=== PATIENT | female | born 1950 | race Caucasian/White ===

== ENCOUNTER 2018-08-04 20:31 | Inpatient (IN) | payer OTHER ==
[~2018-08-04] VITALS: Ht 154.9 cm; Wt 48.5 kg
--- NOTE | 2018-08-04 20:40 | NUR ---
ED Nurse Note: Pt visiting from [place] c/o abdominal pain, nausea since 1999. No vomiting, diarrhea. 10 upper quad pain. AO4. NAD. VSS.
--- NOTE | 2018-08-04 20:44 | Emergency Room Report ---
History of Present Illness General Chief Complaint: Abdominal Pain Source: Patient Present Illness HPI Patient is a 67-year-old female who presented after increased epigastric abdominal pain. She reports having epigastric squeezing sensation. Patient patient reports having pain for approximately half an hour.had she report. she had prior history of type 2 diabetes. She had prior history of chronic pain. She denies any alcohol use. She reports havingprior history type 2 diabetes. taken Prilosec as well as Tylenol with codeine.taken Prilosec. Patient was noted to have some prior history of chronic back pain. Patient denies any prior history of gallstones. She reports having some prior abdominal surgeries for Allergies: Coded Allergies: AMOXICILLIN (Verified Allergy, Unknown, 08/04/18) CLAVULANIC ACID (Verified Allergy, Unknown, 08/04/18) OXYCODONE (Verified Allergy, Unknown, 08/04/18) Uncoded Allergies: TEMODEX (Allergy, Unknown, 08/04/18) Patient History Past Medical History: see triage record Last Menstrual Period: n/a Now: No : 3 Reviewed Nursing Documentation: PMH: Agreed; PSxH: Agreed Nursing Documentation-PMH Past Medical History: No Stated History Review of Systems All Other Systems: negative except mentioned in HPI Physical Exam Vital Signs Date Time Temp Pulse Resp B/P (MAP) Pulse Ox O2 Delivery O2 Flow Rate FiO2 08/04/18 20:35 97.9 82 20 182/92 97 Room Air Sp02 EP Interpretation: reviewed, normal General Appearance: normal inspection, well appearing, no apparent distress, alert, GCS 15 Head: atraumatic ENT: normal ENT inspection, hearing grossly normal, normal voice Neck: normal inspection, full range of motion, supple, no bony tend Respiratory: normal inspection, lungs clear, normal breath sounds, no respiratory distress, no retraction, no wheezing Cardiovascular #1: regular rate, rhythm, no edema Gastrointestinal: normal inspection, normal bowel sounds, non tender, soft, no guarding, no hernia Genitourinary: no CVA tenderness Musculoskeletal: normal inspection, back normal, normal range of motion Neurologic: normal inspection, alert, oriented x3, responsive, building repair maintenance supervisor III-XII nml as tested, speech normal Psychiatric: normal inspection, judgement/insight normal, mood/affect normal Skin: normal inspection, normal color, no rash Medical Decision Making Diagnostic Impression: Primary Impression: Pancreatitis Additional Impression: Dehydration ER Course Patient presented for epigastric abdominal pain. Differential diagnosis include was not limited to pancreatitis, inferior VA, cholecystitis, bowel obstruction among others. Because of complexity of patient's case laboratory testing and imaging studies were ordered. Laboratory studies showed normal white blood count. Patient was noted to have market elevation of her lipase consistent with pancreatitis. CT imaging read by radiology showed gallbladder dilation without evident radiopaque gallstones. Patient was given pain medications as well as IV fluids. Dr. Montrell Howard was contacted for inpatient management. Labs Test 08/04/18 21:00 White Blood Count 7.5 K/UL (4.8-10.8) Red Blood Count 4.35 M/UL (4.20-5.40) Hemoglobin 14.4 G/DL (12.0-16.0) Hematocrit 40.9 % (37.0-47.0) Mean Corpuscular Volume 94 FL (80-99) Mean Corpuscular Hemoglobin 33.2 PG (27.0-31.0) Mean Corpuscular Hemoglobin Concent 35.2 G/DL (32.0-36.0) Red Cell Distribution Width 10.3 % (11.6-14.8) Platelet Count 324 K/UL (150-450) Mean Platelet Volume 6.8 FL (6.5-10.1) Neutrophils (%) (Auto) 50.1 % (45.0-75.0) Lymphocytes (%) (Auto) 42.2 % (20.0-45.0) Monocytes (%) (Auto) 5.3 % (1.0-10.0) Eosinophils (%) (Auto) 1.5 % (0.0-3.0) Basophils (%) (Auto) 0.9 % (0.0-2.0) Prothrombin Time 10.6 SEC (9.30-11.50) Prothromb Time International Ratio 1.0 (0.9-1.1) Activated Partial Thromboplast Time 26 SEC (23-33) Urine Color Pale yellow Urine Appearance Clear Urine pH 6 (4.5-8.0) Urine Specific [place] 1.010 (1.005-1.035) Urine Protein Negative (NEGATIVE) Urine Glucose (UA) Negative (NEGATIVE) Urine Ketones Negative (NEGATIVE) Urine Blood 1+ (NEGATIVE) Urine Nitrite Negative (NEGATIVE) Urine Bilirubin Negative (NEGATIVE) Urine Urobilinogen Normal MG/DL (0.0-1.0) Urine Leukocyte Esterase 2+ (NEGATIVE) Urine RBC 0-2 /HPF (0 - 2) Urine WBC 15-20 /HPF (0 - 2) Urine Squamous Epithelial Cells Few /LPF (NONE/OCC) Urine Bacteria Few /HPF (NONE) Sodium Level 139 MMOL/L (136-145) Potassium Level 3.5 MMOL/L (3.5-5.1) Chloride Level 103 MMOL/L (98-107) Carbon Dioxide Level 24 MMOL/L (21-32) Anion Gap 12 mmol/L (5-15) Blood Urea Nitrogen 24 mg/dL (7-18) Creatinine 0.8 MG/DL (0.55-1.30) Estimat Glomerular Filtration Rate > 60 mL/min (>60) Glucose Level 99 MG/DL (74-106) Calcium Level 9.3 MG/DL (8.5-10.1) Total Bilirubin 0.4 MG/DL (0.2-1.0) Aspartate Amino Transf (AST/SGOT) 63 U/L (15-37) Alanine Aminotransferase (ALT/SGPT) 58 U/L (12-78) Alkaline Phosphatase 83 U/L (46-116) Troponin I 0.019 ng/mL (0.000-0.056) Total Protein 7.4 G/DL (6.4-8.2) Albumin 3.8 G/DL (3.4-5.0) Globulin 3.6 g/dL Albumin/Globulin Ratio 1.1 (1.0-2.7) Lipase 2511 U/L (73-393) Last Vital Signs Date Time Temp Pulse Resp B/P (MAP) Pulse Ox O2 Delivery O2 Flow Rate FiO2 08/04/18 20:35 97.9 82 20 182/92 97 Room Air Status: improved Dar Obrien MD Aug 04, 2018 20:44
[2018-08-04] MEDS ORDERED: Dicyclomine HCl 10mg/5ml oral soln ORAL ONE (20:45)
[2018-08-04] MEDS ORDERED: Isovue-300 100ml vial INJ PRN (20:45)
--- NOTE | 2018-08-04 20:54 | NUR ---
ED Nurse Note: IV access established. Blood and urine collected; sent down to lab.
[2018-08-04 21:23] VITALS: BP 182/92
[2018-08-04 21:26] LABS: BASOPHILS % (AUTO) 0.9 % (0.0-2.0); EOSINOPHILS % (AUTO) 1.5 % (0.0-3.0); HEMATOCRIT 40.9 % (37.0-47.0); HEMOGLOBIN 14.4 G/DL (12.0-16.0); LYMPHOCYTES % (AUTO) 42.2 % (20.0-45.0); MEAN CORPUSCULAR VOLUME 94 FL (80-99); MONOCYTES % (AUTO) 5.3 % (1.0-10.0); NEUTROPHILS % (AUTO) 50.1 % (45.0-75.0); PLATELET COUNT 324 K/UL (150-450); RED BLOOD COUNT 4.35 M/UL (4.20-5.40); RED CELL DISTRIBUTION WIDTH 10.3 % (11.6-14.8); WHITE BLOOD COUNT 7.5 K/UL (4.8-10.8)
[2018-08-04 21:33] LABS: APPEARANCE,URINE CLEAR; BILIRUBIN, URINE NEGATIVE (NEGATIVE); COLOR,URINE PALE YELLOW; GLUCOSE, URINE (UA) NEGATIVE (NEGATIVE); KETONES,URINE NEGATIVE (NEGATIVE); LEUKOCYTE ESTERASE ,URINE 2+ (NEGATIVE); NITRITE,URINE NEGATIVE (NEGATIVE); PH,URINE 6 (4.5-8.0); PROTEIN,URINE NEGATIVE (NEGATIVE); UROBILINOGEN,URINE NORMAL MG/DL (0.0-1.0)
[2018-08-04 21:39] LABS: ANION GAP 12 mmol/L (5-15); BLOOD UREA NITROGEN 24 mg/dL (7-18); CALCIUM 9.3 MG/DL (8.5-10.1); CARBON DIOXIDE 24 MMOL/L (21-32); CHLORIDE 103 MMOL/L (98-107); CREATININE 0.8 MG/DL (0.55-1.30); POTASSIUM 3.5 MMOL/L (3.5-5.1); SODIUM 139 MMOL/L (136-145)
[2018-08-04 21:45] LABS: ALANINE AMINOTRANSFERASE 58 U/L (12-78); ALBUMIN 3.8 G/DL (3.4-5.0); ALBUMIN/GLOBULIN RATIO 1.1 (1.0-2.7); ALKALINE PHOSPHATASE 83 U/L (46-116); ASPARTATE AMINO TRANSFERASE 63 U/L (15-37); BILIRUBIN,TOTAL 0.4 MG/DL (0.2-1.0)
[2018-08-04] MEDS ORDERED: METFORMIN HCL500 M1 ORAL (22:36)
--- NOTE | 2018-08-04 23:09 | NUR ---
ED Nurse Note: Report given to HANY Hood. Patient to be admitted to [place] [id number] under the care of MD Lee.
[2018-08-04] MEDS ORDERED: Morphine Sulfate 4mg/ml Inj (IV/IM USE ONLY) IVP PRN (23:30)
[2018-08-04] MEDS ORDERED: Acetaminophen 650 MG SUPP RECTAL PRN (23:30)
--- NOTE | 2018-08-04 23:55 | NUR ---
ED Nurse Note: Pt left department with [facility] for admission.
[2018-08-05] VITALS: BP 128/66
--- NOTE | 2018-08-05 00:05 | NUR ---
NURSE NOTES: Received report from Arnol Smith RN via phone, patient came from ER via wheelchair, she is AOx4 with no s/s of any distress, denies any pain at this time. IV line on Right AC is patent and intact. Skin is intact. Patient belongings checked, according to patient she had a [place] of $4000, passport and 1 debit card, offered patient if she wants to keep her valuables in the safe, she agreed. Will notify security supervisor. Patient said her real birthday is 12/24/1960 and she is only 57 y/o, charge nurse made aware, she also said that she has a nerve surgery in [place] on 08/08 and supposed to see her MD today. Patient oriented to room and discussed safety, she verbalized understanding and very cooperative. Bed keep in low position and locked, call light within reach, will call MD for admission orders, will continue to monitor.
[2018-08-05] MEDS ORDERED: MICARDIS40 MG ORAL (00:15)
--- NOTE | 2018-08-05 01:40 | NUR ---
NURSE NOTES: Counted Patient's money together with the Credit Investigator and Senior Property Manager. Patient's total money is $[id number], 1 passport and 1 debit card. Valuables put to safe. Instructed patient to inform the nurse on duty regarding her valuables upon discharge, verbalized understanding.
[2018-08-05] MEDS ORDERED: Morphine Sulfate 4mg/ml Inj (IV/IM USE ONLY) IVP PRN (02:30)
[2018-08-05] MEDS ORDERED: Acetaminophen 650 MG SUPP RECTAL PRN (02:30)
[2018-08-05] MEDS ORDERED: D5 1/2NS 1,000 ML IV SCH (02:30)
[2018-08-05 04:00] VITALS: BP 135/78
[2018-08-05] MEDS ORDERED: NovoLOG Insulin Flexpen SUBQ SCH (06:30)
[2018-08-05 06:44] LABS: BASOPHILS % (AUTO) 1.1 % (0.0-2.0); EOSINOPHILS % (AUTO) 2.1 % (0.0-3.0); HEMATOCRIT 42.5 % (37.0-47.0); HEMOGLOBIN 14.8 G/DL (12.0-16.0); LYMPHOCYTES % (AUTO) 52.5 % (20.0-45.0); MEAN CORPUSCULAR VOLUME 95 FL (80-99); NEUTROPHILS % (AUTO) 36.4 % (45.0-75.0); PLATELET COUNT 306 K/UL (150-450); RED BLOOD COUNT 4.45 M/UL (4.20-5.40); RED CELL DISTRIBUTION WIDTH 10.7 % (11.6-14.8); WHITE BLOOD COUNT 5.7 K/UL (4.8-10.8)
[2018-08-05 07:05] LABS: AMYLASE 129 U/L (25-115); ANION GAP 9 mmol/L (5-15); BLOOD UREA NITROGEN 16 mg/dL (7-18); CALCIUM 8.9 MG/DL (8.5-10.1); CARBON DIOXIDE 26 MMOL/L (21-32); CHLORIDE 107 MMOL/L (98-107); CREATININE 0.7 MG/DL (0.55-1.30); POTASSIUM 3.5 MMOL/L (3.5-5.1); SODIUM 142 MMOL/L (136-145)
--- NOTE | 2018-08-05 07:30 | NUR ---
HAND-OFF: Report given to Vicki LEACH.
--- NOTE | 2018-08-05 07:47 | NUR ---
NURSE NOTES: Report received from HANY Brooks. Pt in bed, awake, talkative, A/O x4, no complaints of pain, no distress noted, pt asking when Dr. Howard will see her. Explained to pt, time of Dr. Howard arrival is unknown, but will ask him is schedule for today, bed inlowest position, call light within reach.
--- NOTE | 2018-08-05 07:48 | NUR ---
NURSE NOTES: Asked Dr. Howard when he will be in to see pt, per pt's request. Dr. Howard stated he will be in today around noon, notified pt.
[2018-08-05 08:00] VITALS: BP 132/74
[2018-08-05 08:26] LABS: CHOLESTEROL 221 MG/DL (< 200); HDL CHOLESTEROL 41 MG/DL (40-60); TRIGLYCERIDES 104 MG/DL (30-150)
[2018-08-05] MEDS ORDERED: Irbesartan 150mg tablet ORAL SCH (09:00)
[2018-08-05] MEDS ORDERED: MICARDIS 40 MG ORAL SCH (09:00)
[2018-08-05] MEDS ORDERED: metFORMIN 500mg tab ORAL SCH (09:00)
--- NOTE | 2018-08-05 10:04 | NUR ---
NURSE NOTES: Pt is asking to be discharged as she has a procedure on 08/08/2018. Asked Dr. Howard if pt can be DC if cleared by GI. Dr. Howard stated he will see pt at noon
--- NOTE | 2018-08-05 10:12 | Diagnostic Imaging Report ---
Indication: Abdominal pain Technique: Continuous helical transaxial imaging of the abdomen and pelvis was obtained from the lung bases to the pubic symphysis during intravenous contrast administration. Coronal 2-D reformats were also obtained. Study obtained in a Siemens sensation [address] Automatic Exposure Control was utilized. Total Dose length Product (DLP): 480.[address] Dose Index Volume (CTDIvol): 10.48 mGy Comparison: None Findings: Lung bases are clear. The gallbladder is unremarkable. The biliary ducts are mildly prominent. Correlate clinically. The kidneys, pancreas and spleen, adrenal glands are unremarkable. Appendix is normal. There is no evidence of bowel obstruction. Atrophic uterus noted. There is narrowing of intervertebral discs and accompanying endplate osteophyte formation. Hypertrophied facet joints also demonstrated.. There is narrowing of intervertebral discs and accompanying endplate osteophyte formation. Hypertrophied facet joints also demonstrated. IMPRESSION: Some prominence of the biliary ducts noted. Correlate clinically and evaluate further as needed. Multiple incidental findings as above. [facility] has communicated the preliminary results to the Emergency Department. Their findings are largely concordant with this report. The CT scanner at [facility] is accredited by the [employer] and the scans are performed using dose optimization techniques as appropriate to a performed exam including Automatic Exposure control.
--- NOTE | 2018-08-05 11:13 | GI Initial Consult Note ---
History of Present Illness General Date patient seen: Aug 05, 2018 Time patient seen: 11:04 Reason for Hospitalization: Abdominal Pain Referring physician: ROXANNE CORDERO Reason for Consultation: PANCREATITIS Present Illness HPI Patient is a 67-year-old female who presented after increased epigastric abdominal pain. She reports having epigastric squeezing sensation. Patient patient reports having pain for approximately half an hour.had she report. she had prior history of type 2 diabetes. She had prior history of chronic pain. She denies any alcohol use. She reports having prior history type 2 diabetes. taken Prilosec as well as Tylenol with codeine.taken Prilosec. Patient was noted to have some prior history of chronic back pain. Patient denies any prior history of gallstones. She reports having some prior abdominal surgeries for GI consulted for pancreatitis. Initial HPI as noted above. Patient seen, awake alert and oriented x4 no apparent distress, no active nausea or vomiting, denies any abdominal pain, denies any diarrhea. The patient is a international traveler, stated that she was dehydrated from not drinking water. In addition, the patient states that her abdominal pain began after he had some vegetables and chicken that she bought at the [employer]. Abdominal pelvic CT was done in the emergency room; noted that the gallbladder was unremarkable, biliary ducts are mildly prominent, no evidence of pancreatitis, no noted cholelithiasis. Labs reviewed; no anemia. No leukocytosis. No transaminitis. Triglyceride level is within normal limits. Elevated lipase levels over 2500, now down trending to 500. Urine toxicity unremarkable. No history of endoscopic. Home Meds Reported Medications Telmisartan (MICARDIS) 40 Mg Tablet, 40 MG ORAL DAILY, TAB 08/05/18 Metformin Hcl* (METFORMIN HCL*) 500 Mg Tablet, ORAL TWICE A DAY, TAB 08/04/18 Med list reviewed/reconciled: Yes Allergies: Coded Allergies: AMOXICILLIN (Verified Allergy, Unknown, 08/04/18) CLAVULANIC ACID (Verified Allergy, Unknown, 08/04/18) OXYCODONE (Verified Allergy, Unknown, 08/04/18) Uncoded Allergies: TEMODEX (Allergy, Unknown, 08/04/18) Patient History History Provided By: Patient, Medical Record PMH Narrative Past Medical History: see triage record Last Menstrual Period: n/a Now: No : 3 Reviewed Nursing Documentation: PMH: Agreed; PSxH: Agreed Nursing Documentation-PMH Past Medical History: No Stated History Social History: Denies: smoking, alcohol use, drug use, other Review of Systems All Other Systems: negative except mentioned in HPI Physical Exam Vital Signs Date Time Temp Pulse Resp B/P (MAP) Pulse Ox O2 Delivery O2 Flow Rate FiO2 08/04/18 20:35 97.9 82 20 182/92 97 Room Air Sp02 EP Interpretation: reviewed, normal Labs Laboratory Tests Test 08/04/18 21:00 08/05/18 06:20 08/05/18 09:00 White Blood Count 7.5 K/UL (4.8-10.8) 5.7 K/UL (4.8-10.8) Red Blood Count 4.35 M/UL (4.20-5.40) 4.45 M/UL (4.20-5.40) Hemoglobin 14.4 G/DL (12.0-16.0) 14.8 G/DL (12.0-16.0) Hematocrit 40.9 % (37.0-47.0) 42.5 % (37.0-47.0) Mean Corpuscular Volume 94 FL (80-99) 95 FL (80-99) Mean Corpuscular Hemoglobin 33.2 PG (27.0-31.0) H 33.4 PG (27.0-31.0) H Mean Corpuscular Hemoglobin Concent 35.2 G/DL (32.0-36.0) 34.9 G/DL (32.0-36.0) Red Cell Distribution Width 10.3 % (11.6-14.8) L 10.7 % (11.6-14.8) L Platelet Count 324 K/UL (150-450) 306 K/UL (150-450) Mean Platelet Volume 6.8 FL (6.5-10.1) 6.8 FL (6.5-10.1) Neutrophils (%) (Auto) 50.1 % (45.0-75.0) 36.4 % (45.0-75.0) L Lymphocytes (%) (Auto) 42.2 % (20.0-45.0) 52.5 % (20.0-45.0) H Monocytes (%) (Auto) 5.3 % (1.0-10.0) 8.0 % (1.0-10.0) Eosinophils (%) (Auto) 1.5 % (0.0-3.0) 2.1 % (0.0-3.0) Basophils (%) (Auto) 0.9 % (0.0-2.0) 1.1 % (0.0-2.0) Prothrombin Time 10.6 SEC (9.30-11.50) Prothromb Time International Ratio 1.0 (0.9-1.1) Activated Partial Thromboplast Time 26 SEC (23-33) Urine Color Pale yellow Urine Appearance Clear Urine pH 6 (4.5-8.0) Urine Specific [place] 1.010 (1.005-1.035) Urine Protein Negative (NEGATIVE) Urine Glucose (UA) Negative (NEGATIVE) Urine Ketones Negative (NEGATIVE) Urine Blood 1+ (NEGATIVE) H Urine Nitrite Negative (NEGATIVE) Urine Bilirubin Negative (NEGATIVE) Urine Urobilinogen Normal MG/DL (0.0-1.0) Urine Leukocyte Esterase 2+ (NEGATIVE) H Urine RBC 0-2 /HPF (0 - 2) Urine WBC 15-20 /HPF (0 - 2) H Urine Squamous Epithelial Cells Few /LPF (NONE/OCC) Urine Bacteria Few /HPF (NONE) Sodium Level 139 MMOL/L (136-145) 142 MMOL/L (136-145) Potassium Level 3.5 MMOL/L (3.5-5.1) 3.5 MMOL/L (3.5-5.1) Chloride Level 103 MMOL/L (98-107) 107 MMOL/L (98-107) Carbon Dioxide Level 24 MMOL/L (21-32) 26 MMOL/L (21-32) Anion Gap 12 mmol/L (5-15) 9 mmol/L (5-15) Blood Urea Nitrogen 24 mg/dL (7-18) H 16 mg/dL (7-18) Creatinine 0.8 MG/DL (0.55-1.30) 0.7 MG/DL (0.55-1.30) Estimat Glomerular Filtration Rate > 60 mL/min (>60) > 60 mL/min (>60) Glucose Level 99 MG/DL (74-106) 98 MG/DL (74-106) Calcium Level 9.3 MG/DL (8.5-10.1) 8.9 MG/DL (8.5-10.1) Total Bilirubin 0.4 MG/DL (0.2-1.0) Aspartate Amino Transf (AST/SGOT) 63 U/L (15-37) H Alanine Aminotransferase (ALT/SGPT) 58 U/L (12-78) Alkaline Phosphatase 83 U/L (46-116) Troponin I 0.019 ng/mL (0.000-0.056) Total Protein 7.4 G/DL (6.4-8.2) Albumin 3.8 G/DL (3.4-5.0) Globulin 3.6 g/dL Albumin/Globulin Ratio 1.1 (1.0-2.7) Lipase 2511 U/L (73-393) H 510 U/L (73-393) H Triglycerides Level 104 MG/DL (30-150) Cholesterol Level 221 MG/DL (< 200) H LDL Cholesterol 173 mg/dL (<100) H HDL Cholesterol 41 MG/DL (40-60) Cholesterol/HDL Ratio 5.4 (3.3-4.4) H Amylase Level 129 U/L (25-115) H Urine Opiates Screen Positive (NEGATIVE) H Urine Barbiturates Screen Negative (NEGATIVE) Phencyclidine (PCP) Screen Negative (NEGATIVE) Urine Amphetamines Screen Negative (NEGATIVE) Urine Benzodiazepines Screen Negative (NEGATIVE) Urine Cocaine Screen Negative (NEGATIVE) Urine Marijuana (THC) Screen Negative (NEGATIVE) General Appearance: well appearing, no apparent distress, alert Head: normocephalic EENT: PERRL/EOMI, normal ENT inspection Neck: supple Respiratory: normal breath sounds, no respiratory distress Cardiovascular: normal rate Gastrointestinal: normal inspection, non tender, soft, normal bowel sounds, non -distended Rectal: deferred Genitourinary: no CVA tenderness Musculoskeletal: normal inspection, back normal Neurologic: normal inspection, alert, oriented x3, responsive Psychiatric: normal inspection, judgement/insight normal, memory normal Skin: normal inspection, normal color, no rash, warm/dry, palpation normal, well hydrated Lymphatic: normal inspection, no adenopathy Current Medications Current Medications Medications (Trade) Dose Ordered Sig/Adeel Route PRN Reason Start Time Stop Time Status Last Admin Dose Admin Acetaminophen (Tylenol) 650 mg Q4H PRN RECTAL TEMP>100.5 08/05/18 02:30 09/04/18 02:29 Dextrose (Dextrose 50%) 25 ml Q30M PRN IV Hypoglycemia 08/05/18 02:30 09/04/18 02:29 Dextrose (Dextrose 50%) 50 ml Q30M PRN IV Hypoglycemia 08/05/18 02:30 09/04/18 02:29 Dextrose/Sodium Chloride 1,000 ml @ 60 mls/hr [id number] IV 08/05/18 02:30 09/04/18 02:29 08/05/18 02:59 Insulin Aspart (NovoLOG) BEFORE MEALS AND HS SUBQ 08/05/18 06:30 09/04/18 06:29 Iopamidol (Isovue-300 100ml) 100 ml NOW PRN INJ Radiology Procedure 08/04/18 20:45 Morphine Sulfate (Morphine Sulfate) 4 mg Q4H PRN IVP Severe Pain (Pain Scale 7-10) 08/05/18 02:30 08/12/18 02:29 Ondansetron HCl (Zofran) 4 mg EVERY 4 HOURS PRN IVP Nausea & Vomiting 08/05/18 02:30 09/04/18 02:29 Patient Own Medication (Patient's Own Med) 1 ea DAILY ORAL 08/05/18 09:00 09/04/18 08:59 08/05/18 09:54 GI: Plan Problems: (1) Pancreatitis (2) Dehydration Plan Abdominal pelvis CT reviewed. >> The gallbladder is unremarkable. The biliary ducts are mildly prominent. Correlate clinically. The kidneys, pancreas and spleen, adrenal glands are unremarkable. Appendix is normal. There is no evidence of bowel obstruction. Negative Elevated lipase level >> downtrending Triglyceride levels normal Symptomatic treatment Clear liquid diet, advance as tolerated Pain management Prophylactic antibiotic PPI Diet consideration education for pancreatitis given Okay to DC per GI standpoint if patient can tolerate lunch with no pain fu labs Discussed with Dr. Kimball. Thank you for this patient referral, we will follow. The patient was seen and examined at bedside and all new and available data was reviewed in the patients chart. I agree with the above findings, impression and plan. (Patient seen earlier today. Signature stamp does not reflect patient encounter time.). - MD Ya Sheth,[facility] STRIPPER APPRENTICE Aug 05, 2018 11:13
--- NOTE | 2018-08-05 11:50 | NUR ---
NURSE NOTES: Pt is leaving AMA. She states "I have to go, I have an appointment at 1:00pm and need to get over there. I cannot miss it because I already paid them a lot of money." Notified Dr. Howard and Cristian, PALLETISER OPERATOR for Dr. Kimball.
--- NOTE | 2018-08-05 12:04 | NUR ---
NURSE NOTES: Nursing supervisor heat treating notified of pt leaving AMA, needs belongings out of safe. Pt's IV removed and ID band removed. AMA paperwork signed by pt. Discussed risk of leaving AMA and benefits of staying in hospital. Pt will contact a taxi to pick her up.
--- NOTE | 2018-08-05 12:17 | NUR ---
NURSE NOTES: Pt left AMA with all belongings. Pt given belongings from Safe by HANY Cowart Homogenizer Operator. IV access removed, ID band removed, Pt contacted taxi service for orange picker, pt ambulatory, stable.
--- NOTE | 2018-08-07 12:19 | Discharge Summary ---
Discharge Summary Discharge Summary _ DATE OF ADMISSION: 08/04/2018 DATE OF DISCHARGE: 08/05/2018 Patient signed AGAINST MEDICAL ADVICE REASON FOR ADMISSION: 57 years old female with past medical history of diabetes mellitus, presented with epigastric abdominal pain. Patient reported chronic back pain. She denied alcohol use. No history of gallstones. Upon evaluation vital signs revealed elevated blood pressure 182/92 , pulse oximetry was stable on room air . Laboratory workup revealed no leukocytosis , hemoglobin 14.4, hematocrit 40.9. Urinalysis revealed no evidence of UTI. Stable electrolytes BUN 24 , creatinine 0.8 . Troponin - 0.019. Lipase 2511. AST 63 , ALT 58. CT of the abdomen and pelvis revealed some prominence of biliary ducts. Kidney , pancreas , spleen , adrenal gland were unremarkable. Appendix was normal. No evidence of bowel obstruction. Lung bases were clear. Noted narrowing of intervertebral discs and accompanying endplate osteophyte formation. Hypertrophied facet joints also were demonstrated. In emergency department patient received analgesia and started on the IV fluids. Patient was subsequently admitted for further management of pancreatitis and dehydration. CONSULTANTS: GI specialist Dr. Kimball [facility]SE: Patient admitted to medical surgical floor amd started on IV fluids. Pain management was addressed. Symptomatic treatment with antiemetic provided as needed. GI consult was requested. GI specialist seen and evaluated patient, and started patient on clear liquid diet with goal to advance as tolerated. Patient was started on prophylactic antibiotic. Patient started on proton pump inhibitor. Patient was educated on diet for pancreatitis. Next day lipase trended down from 2511 down to 510. Lipid panel revealed elevated total cholesterol 221 and elevated LDL 173. Patient was educated on low-cholesterol low-fat diet. Repeat lipid panel in 3 months and consider starting statin if LDL still elevated. Urine toxicology screen was positive for opiates( patient was taking opiates for pain relief). Abdominal pain resolved. Blood sugar was managed with with metformin and sliding scale of insulin as needed. Supportive care provided. Blood pressure stabilized as pain resolved. Renal parameters and electrolytes were closely monitored. Electrolytes remained stable. BUN down to 16 , creatinine 0.7. Patient clinically stabilized and decided to leave AGAINST MEDICAL ADVICE. The risks and consequences of signing AGAINST MEDICAL ADVICE were discussed with patient in detail. Patient verbalized understanding, nevertheless signed AMA form and left. FINAL DIAGNOSES: Pancreatitis Dehydration Hypercholesterolemia I have been assigned to dictate discharge summary for this account. I was not involved in the patient's management. Latricia Adams NP Aug 07, 2018 12:19
--- NOTE | 2018-08-08 13:31 | NUR ---
*-* INSURANCE *-* CLINICALS HAVE BEEN FAXED TO: [facility] P:[phone] F:[phone]
== END 2018-08-05 12:15 | disposition left against medical advice (07) | DRG 440 ==
LOC: EDBD 20:31 → EMR 20:59 → 4E 22:38 → EDBEDREQ 23:05
DX: K85.90 Acute pancreatitis without necrosis or infection, unspecified (principal); E78.00 Pure hypercholesterolemia, unspecified; E86.0 Dehydration; Z53.21 Procedure and treatment not carried out due to patient leaving prior to being seen by health care provider; E11.9 Type 2 diabetes mellitus without complications; Z79.84 Long term (current) use of oral hypoglycemic drugs
CPT/HCPCS: 36415; 74177; 80048; 80053; 80061; 80307; 81003; 82150; 82962; 83690; 84484; 85025; 85610; 85730; 86850; 86900; 86901; 87086; 93005; 96361; 96365; 96375; 99285; J1815; J2405